=== PATIENT | female | born 1975 | race American Indian/Alaskan Native ===

== ENCOUNTER 2022-01-06 18:29 | Emergency (ER) | payer OTHER ==
[2022-01-06 18:44] VITALS: BP 141/119; PULSE 92
[2022-01-06] MEDS ORDERED: Ketorolac 60 MG/2 ML SDV IM ONE (19:23)
[2022-01-06 19:26] LABS: CORONAVIRUS COVID-19 NAA NEGATIVE (NEGATIVE)
== END 2022-01-06 20:27 | disposition home or self-care (01) ==
LOC: JD.ED 18:29
DX: U07.1 COVID-19 (principal); K21.9 Gastro-esophageal reflux disease without esophagitis; I10 Essential (primary) hypertension; E11.9 Type 2 diabetes mellitus without complications; Z79.899 Other long term (current) drug therapy; Z79.84 Long term (current) use of oral hypoglycemic drugs
CPT/HCPCS: 0241U; 87651; 96372; 99283; J1885